=== PATIENT | female | born 1935 ===

== ENCOUNTER 2018-06-17 11:10 | Emergency (ER) | payer MEDICARE ==
[2018-06-17] MEDS ORDERED: SODIUM CHLORIDE 0.9% 1,000 ML IV ONE (11:18)
--- NOTE | 2018-06-17 11:26 | ED ---
Altered Mental Status HPI - General Stated Complaint: altered Time Seen by Provider: 06/17/18 11:10 Source: EMS, RN notes reviewed, old records reviewed Mode of arrival: EMS - History of Present Illness Initial Comments: This 82-year-old female history of hypertension but no prior history of stroke who apparently was last known to be well yesterday who was brought in by EMS today because of altered mental status and confusion she did have apparently nausea and episode of vomiting with vomitus on the front of her clothing. She was confused as to where she was and Perseverating that she was not sure she was in [place] or [place]. Is no reports of trauma no fevers chills or sweats cough or phlegm production no known history of drug or alcohol abuse no other information available at this time. Additionally the patient reportedly had problems with potassium levels in the past. MD Complaint: altered mental status, confusion - Related Data Home Medications Medication Instructions Recorded Confirmed Furosemide [Lasix] 20 mg PO DAILY 06/17/18 06/17/18 Lisinopril [Zestril] 5 mg PO DAILY 06/17/18 06/17/18 Meclizine HCl 25 mg PO DAILY PRN 06/17/18 06/17/18 Meloxicam 7.5 mg PO DAILY 06/17/18 06/17/18 Simvastatin [Zocor] 20 mg PO HS 06/17/18 06/17/18 Allergies Allergy/AdvReac Type Severity Reaction Status Date / Time No Known Allergies Allergy Verified 06/17/18 11:47 Review of Systems ROS Statement: Those systems with pertinent positive or pertinent negative responses have been documented in the HPI. ROS Other: All systems not noted in ROS Statement are negative. Limitations: ROS unobtainable due to patients medical condition General Exam - General Exam Comments Initial Comments: This is a well-developed well-nourished awake alert but confused female who is perseverating on questioning. She is also noted to have some pursed mouth breathing Limitations: altered mental status General appearance: alert, in no apparent distress Head exam: Present: atraumatic, normocephalic, normal inspection Eye exam: Present: normal appearance, PERRL, EOMI. Absent: scleral icterus, conjunctival injection, periorbital swelling ENT exam: Present: mucous membranes dry Neck exam: Present: normal inspection. Absent: tenderness, meningismus, lymphadenopathy Respiratory exam: Present: normal lung sounds bilaterally. Absent: respiratory distress, wheezes, rales, rhonchi, stridor Cardiovascular Exam: Present: regular rate, normal rhythm, normal heart sounds. Absent: systolic murmur, diastolic murmur, rubs, gallop, clicks GI/Abdominal exam: Present: soft, normal bowel sounds. Absent: distended, ten derness, guarding, rebound, rigid Extremities exam: Present: normal inspection, full ROM, normal capillary refill. Absent: tenderness, pedal edema, joint swelling, calf tenderness Back exam: Present: normal inspection Neurological exam: Present: alert, altered, CN II-XII intact. Absent: motor sensory deficit Psychiatric exam: Present: flat affect Skin exam: Present: warm, dry, intact, normal color. Absent: rash Course Vital Signs 06/17/18 06/17/18 06/17/18 11:28 13:28 14:32 Temperature 98.1 F Pulse Rate 97 101 H 122 H Respiratory 18 18 18 Rate Blood Pressure 139/104 108/74 129/81 O2 Sat by Pulse 100 100 95 Oximetry - Reevaluation(s) Reevaluation #1: 06/17/18 14:49 I did reevaluate patient several occasions her mentation has improved markedly however she still has difficulty with remembering approximately last week for life. Her daughter is present and does confirm this. Reevaluation #2: 06/17/18 14:50 Patient on reevaluation noted to be in atrial fibrillation this is a new condition for her. This is not present on her initial evaluation today. Reevaluation #3: 06/17/18 14:51 Cardiac monitoring: Needed to rule out dysrhythmia. Patient did present with altered mental status. Initially the heart rate was 55 with a sinus rhythm pattern later on however on reevaluation the patient demonstrated evidence of atrial fibrillation with a rapid response rate of about 105. No PVCs present Reevaluation #4: 06/17/18 14:52 Repeat EKG shows a atrial fibrillation rate of 102 QRS 132 QT since QTC 384/500 right bundle-branch block pattern no acute ST-T wave elevation or depression seen. Medical Decision Making - Medical Decision Making The patient did initially present with altered mental status and confusion that has improved except for memory deficit for the past week. She also had a new onset A. fib which was noted on reevaluation the emergency department she did not present this way initially. Computed tomography scan was negative for acute findings I did discuss case with Dr. Love initially patient will be transferred to [facility] at the request of the family due to no neurology coverage in this facility. Dr. Hartley is receiving the patient in the emergency department. The patient's heart rate is in the low 100s at this time this time Cardizem will be withheld. - Lab Data Result diagrams: 06/17/18 11:20 06/17/18 11:20 Lab Results 06/17/18 06/17/18 06/17/18 Range/Units 11:20 11:20 11:20 WBC 13.2 H (3.8-10.6) k/uL RBC 4.71 (3.80-5.40) m/uL Hgb 14.7 (11.4-16.0) gm/dL Hct 43.4 (34.0-46.0) % MCV 92.1 (80.0-100.0) fL MCH 31.3 (25.0-35.0) pg MCHC 34.0 (31.0-37.0) g/dL RDW 14.0 (11.5-15.5) % Plt Count 289 (150-450) k/uL Neutrophils % 75 % Lymphocytes % 18 % Monocytes % 4 % Eosinophils % 2 % Basophils % 1 % Neutrophils # 9.9 H (1.3-7.7) k/uL Lymphocytes # 2.4 (1.0-4.8) k/uL Monocytes # 0.5 (0-1.0) k/uL Eosinophils # 0.2 (0-0.7) k/uL Basophils # 0.1 (0-0.2) k/uL PT (9.0-12.0) sec INR (<1.2) APTT (22.0-30.0) sec Sodium 138 (137-145) mmol/L Potassium 3.7 (3.5-5.1) mmol/L Chloride 103 (98-107) mmol/L Carbon Dioxide 24 (22-30) mmol/L Anion Gap 11 mmol/L BUN 14 (7-17) mg/dL Creatinine 0.62 (0.52-1.04) mg/dL Est GFR (CKD-EPI)AfAm >90 (>60 ml/min/1.73 sqM) Est GFR (CKD-EPI)NonAf 84 (>60 ml/min/1.73 sqM) Glucose 119 H (74-99) mg/dL Calcium 10.2 (8.4-10.2) mg/dL Magnesium 1.9 (1.6-2.3) mg/dL Total Bilirubin 1.0 (0.2-1.3) mg/dL AST 28 (14-36) U/L ALT 31 (9-52) U/L Alkaline Phosphatase 107 (38-126) U/L Ammonia <9 (<30) umol/L Creatine Kinase 52 (30-135) U/L Troponin I (0.000-0.034) ng/mL Total Protein 8.4 H (6.3-8.2) g/dL Albumin 4.8 (3.5-5.0) g/dL Urine Color Urine Appearance (Clear) Urine pH (5.0-8.0) Ur Specific [place] (1.001-1.035) Urine Protein (Negative) Urine Glucose (UA) (Negative) Urine Ketones (Negative) Urine Blood (Negative) Urine Nitrite (Negative) Urine Bilirubin (Negative) Urine Urobilinogen (<2.0) mg/dL Ur Leukocyte Esterase (Negative) Urine Opiates Screen (NotDetected) Ur Oxycodone Screen (NotDetected) Urine Methadone Screen (NotDetected) Ur Propoxyphene Screen (NotDetected) Ur Barbiturates Screen (NotDetected) U Tricyclic Antidepress (NotDetected) Ur Phencyclidine Scrn (NotDetected) Ur Amphetamines Screen (NotDetected) U Methamphetamines Scrn (NotDetected) U Benzodiazepines Scrn (NotDetected) Urine Cocaine Screen (NotDetected) U Marijuana (THC) Screen (NotDetected) Serum Alcohol <10 mg/dL 06/17/18 06/17/18 06/17/18 Range/Units 11:20 11:20 12:20 WBC (3.8-10.6) k/uL RBC (3.80-5.40) m/uL Hgb (11.4-16.0) gm/dL Hct (34.0-46.0) % MCV (80.0-100.0) fL MCH (25.0-35.0) pg MCHC (31.0-37.0) g/dL RDW (11.5-15.5) % Plt Count (150-450) k/uL Neutrophils % % Lymphocytes % % Monocytes % % Eosinophils % % Basophils % % Neutrophils # (1.3-7.7) k/uL Lymphocytes # (1.0-4.8) k/uL Monocytes # (0-1.0) k/uL Eosinophils # (0-0.7) k/uL Basophils # (0-0.2) k/uL PT 10.2 (9.0-12.0) sec INR 0.9 (<1.2) APTT 26.0 (22.0-30.0) sec Sodium (137-145) mmol/L Potassium (3.5-5.1) mmol/L Chloride (98-107) mmol/L Carbon Dioxide (22-30) mmol/L Anion Gap mmol/L BUN (7-17) mg/dL Creatinine (0.52-1.04) mg/dL Est GFR (CKD-EPI)AfAm (>60 ml/min/1.73 sqM) Est GFR (CKD-EPI)NonAf (>60 ml/min/1.73 sqM) Glucose (74-99) mg/dL Calcium (8.4-10.2) mg/dL Magnesium (1.6-2.3) mg/dL Total Bilirubin (0.2-1.3) mg/dL AST (14-36) U/L ALT (9-52) U/L Alkaline Phosphatase (38-126) U/L Ammonia (<30) umol/L Creatine Kinase (30-135) U/L Troponin I 0.057 H* (0.000-0.034) ng/mL Total Protein (6.3-8.2) g/dL Albumin (3.5-5.0) g/dL Urine Color Light Yellow Urine Appearance Clear (Clear) Urine pH 8.0 (5.0-8.0) Ur Specific [place] 1.008 (1.001-1.035) Urine Protein Trace H (Negative) Urine Glucose (UA) Negative (Negative) Urine Ketones 1+ H (Negative) Urine Blood Negative (Negative) Urine Nitrite Negative (Negative) Urine Bilirubin Negative (Negative) Urine Urobilinogen <2.0 (<2.0) mg/dL Ur Leukocyte Esterase Negative (Negative) Urine Opiates Screen Not Detected (NotDetected) Ur Oxycodone Screen Not Detected (NotDetected) Urine Methadone Screen Not Detected (NotDetected) Ur Propoxyphene Screen Not Detected (NotDetected) Ur Barbiturates Screen Not Detected (NotDetected) U Tricyclic Antidepress Not Detected (NotDetected) Ur Phencyclidine Scrn Not Detected (NotDetected) Ur Amphetamines Screen Not Detected (NotDetected) U Methamphetamines Scrn Not Detected (NotDetected) U Benzodiazepines Scrn Not Detected (NotDetected) Urine Cocaine Screen Not Detected (NotDetected) U Marijuana (THC) Screen Not Detected (NotDetected) Serum Alcohol mg/dL - EKG Data -: EKG Interpreted by Me ( no acute findings) EKG shows normal: sinus rhythm (Initial EKG upon arrival showed a sinus bradycardia 51 FL interval 164 QRS duration 136 QT since QTC 516/475 right bundle-branch block artifact is present) - Radiology Data Radiology results: report reviewed (I did review the imaging and report), image reviewed Critical Care Time Critical Care Time: Yes Critical Care Time: 47 minutes of critical care time which includes his presentation with history p hysical labs x-rays also multiple reevaluation the patient. Discussed with patient's daughter regarding findings discussed with the patient session with the hospitalist on 2 occasions discussion with the receiving physician at [facility]. Documentation of the above. Disposition Clinical Impression: Delirium due to general medical condition, Altered mental status, Atrial fibrillation with rapid ventricular response, Elevated troponin Disposition: OTHER INSTITUTION NOT DEFINED Condition: Fair Is patient prescribed a controlled substance at d/c from ED?: No Referrals: Ladonna Mcghee MD [Primary Care Provider] - 1-2 days - Out of Hospital Transfer - Req. Specs Out of Hospital Transfer - Requested Specifics: Other Emergency Center
[2018-06-17 11:37] VITALS: RESP 18; TEMP 98.1
[2018-06-17] MEDS ORDERED: METOCLOPRAMIDE 5 MG/ML 2 ML VIAL IVP STA ×2 (11:44→15:22)
[2018-06-17 11:50] LABS: Basophils # (A) 0.1 k/uL (0-0.2); Basophils % (A) 1 %; Eosinophils # (A) 0.2 k/uL (0-0.7); Eosinophils % (A) 2 %; HCT 43.4 % (34.0-46.0); HGB 14.7 gm/dL (11.4-16.0); Lymphocytes # (A) 2.4 k/uL (1.0-4.8); Lymphocytes % (A) 18 %; MCH 31.3 pg (25.0-35.0); MCV 92.1 fL (80.0-100.0); Mean Platelet Volume 7.3; Monocytes # (A) 0.5 k/uL (0-1.0); Monocytes % (A) 4 %; Neutrophils # (A) 9.9 k/uL (1.3-7.7); Neutrophils % (A) 75 %; Platelet Count 289 k/uL (150-450); RBC 4.71 m/uL (3.80-5.40); WBC 13.2 k/uL (3.8-10.6)
[2018-06-17 11:57] LABS: INR 0.9 (<1.2); Prothrombin Time 10.2 sec (9.0-12.0)
[2018-06-17 12:01] LABS: ALT 31 U/L (9-52); AST 28 U/L (14-36); Albumin 4.8 g/dL (3.5-5.0); Alcohol <10 mg/dL; Alkaline Phosphatase 107 U/L (38-126); Anion Gap 11 mmol/L; Blood Urea Nitrogen 14 mg/dL (7-17); Calcium 10.2 mg/dL (8.4-10.2); Carbon Dioxide 24 mmol/L (22-30); Chloride 103 mmol/L (98-107); Creatine Kinase 52 U/L (30-135); Glucose 119 mg/dL (74-99); Magnesium 1.9 mg/dL (1.6-2.3); Potassium 3.7 mmol/L (3.5-5.1); Sodium 138 mmol/L (137-145); Total Protein 8.4 g/dL (6.3-8.2)
--- NOTE | 2018-06-17 12:16 | XR ---
EXAMINATION TYPE: XR chest 2V DATE OF EXAM: 06/17/2018 COMPARISON: NONE HISTORY: Altered mental status TECHNIQUE: Frontal and lateral views of the chest are obtained. FINDINGS: Prominent lung volumes with relative flattening the hemidiaphragms is noted. There is hyper inflation. There are overlying cardiac leads. There is no focal air space opacity, pleural effusion, or pneumothorax seen. The cardiac silhouette size is within normal limits. Thoracic spondylosis is present. The osseous structures are intact. IMPRESSION: No acute cardiopulmonary process.
--- NOTE | 2018-06-17 12:17 | CT ---
EXAMINATION TYPE: CT brain wo con DATE OF EXAM: 06/17/2018 COMPARISON: None HISTORY: 82-year-old female with confusion, altered mental status changes TECHNIQUE: Examination was done in axial plane without intravenous contrast. Coronal and sagittal r econstructions performed. CT DLP: 1068.4 mGycm Automated exposure control for dose reduction was used. FINDINGS: There is no evidence of acute intracranial hemorrhage, acute ischemic changes, mass, mass-effect, or extra-axial fluid collection. There is no effacement of cerebral sulci or basal subarachnoid cister ns. There is no hydrocephalus. There is no midline shift. Mack-white matter distinction is preserv ed. Moderate patchy white matter hypodensities in both cerebral hemispheres. Paranasal sinuses and mastoid air cells well pneumatized. Orbits and globes are intact. IMPRESSION: Moderate patchy white matter hypodensities likely relating to changes of chronic small vessel ischemi c disease. No acute intracranial abnormality seen.
[2018-06-17 12:44] LABS: Appearance,Urine Clear (Clear); Bilirubin,Urine Negative (Negative); Blood,Urine Negative (Negative); Color,Urine Light Yellow; Glucose,Urine (UA) Negative (Negative); Ketones,Urine 1+ (Negative); Leukocyte Esterase,Urine Negative (Negative); Nitrite,Urine Negative (Negative); Protein,Urine Trace (Negative); Specific Gravity,Urine 1.008 (1.001-1.035); Urobilinogen,Urine <2.0 mg/dL (<2.0)
[2018-06-17 12:54] LABS: Amphetamine Screen,Urine Not Detected (NotDetected); Barbiturate Screen,Urine Not Detected (NotDetected); Benzodiazepines Screen,Urine Not Detected (NotDetected); Cocaine Screen,Urine Not Detected (NotDetected); Methadone Screen, Urine Not Detected (NotDetected); Opiate Screen,Urine Not Detected (NotDetected); Oxycodone Screen, Urine Not Detected (NotDetected); Phencyclidine Screen,Urine Not Detected (NotDetected); Tricyclic Antidepressant,Urine Not Detected (NotDetected); Urn Cannabinoid Scrn Not Detected (NotDetected)
[2018-06-17] MEDS ORDERED: ASPIRIN 81 MG PO STA (14:04)
[2018-06-17] MEDS ORDERED: HEPARIN SODIUM,PORCINE 5,000 UNIT/ML 1 ML VIAL IV PRN (14:04)
[2018-06-17] MEDS ORDERED: HEPARIN SODIUM,PORCINE 5,000 UNIT/ML 1 ML VIAL IV ONE (14:04)
[2018-06-17] MEDS ORDERED: HEPARIN SOD,PORK IN 0.45% NACL 25,000 UNIT in 0.45% NACL 1 250ML.BAG IV SCH (14:15)
[2018-06-17 15:10] VITALS: BP 134/71; PULSE 72
== END 2018-06-17 15:31 | disposition other institution (70) ==
LOC: EC 11:10
DX: R41.82 Altered mental status, unspecified (principal); F05 Delirium due to known physiological condition; I48.91 Unspecified atrial fibrillation; R79.89 Other specified abnormal findings of blood chemistry; R11.2 Nausea with vomiting, unspecified; I10 Essential (primary) hypertension; Z79.1 Long term (current) use of non-steroidal anti-inflammatories (NSAID); Z79.899 Other long term (current) drug therapy
CPT/HCPCS: 36415; 93005; 80053; 82140; 82550; 83735; 84484; 85025; 85610; 85730; 81003; 80306; 71046; 70450; 99291; 96365; 96375; 96376 ×2; 96361 ×3; G0480; J1644 ×2; J2765; 80320

== ENCOUNTER → 2018-09-13 | Outpatient (CLI) | payer MEDICARE ==
[2018-09-13 09:52] LABS: HCT 39.1 % (34.0-46.0); HGB 12.7 gm/dL (11.4-16.0); MCH 31.1 pg (25.0-35.0); MCHC 32.3 g/dL (31.0-37.0); MCV 96.3 fL (80.0-100.0); Mean Platelet Volume 6.4; Platelet Count 262 k/uL (150-450); RBC 4.06 m/uL (3.80-5.40); RDW 12.7 % (11.5-15.5); WBC 5.3 k/uL (3.8-10.6)
[2018-09-13 16:16] LABS: African American GFR (CKD) 92.9 (60.0-200.0); Anion Gap 9.3 mmol/L (4.00-12.00); Carbon Dioxide 26.7 mmol/L (21.6-31.8); Potassium 4.3 mmol/L (3.5-5.5)
== END | disposition home or self-care (01) ==
LOC: LABWHC1 08:27
PROVIDERS: ATTEND Internal Medicine Interventional Cardiology
DX: Z01.812 Encounter for preprocedural laboratory examination (principal); R94.39 Abnormal result of other cardiovascular function study
CPT/HCPCS: 36415; 80051; 82565; 84520; 85027

== ENCOUNTER → 2018-09-15 | Day surgery (SDC) | payer MEDICARE ==
[2018-09-10 10:09] VITALS: BMI 28.3
[~2018-09-15] MED LIST: ALPRAZolam 0.25 MG TAB PO PRN; ASPIRIN 325 MG TAB PO STA; HEPARIN SODIUM 1,000 UN/ML (10ML VL) ONE; IOPAMIDOL-370 125ML BTL INJ ONE; LIDOCAINE 1% INJ 10MG/ML (20 ML MDV) ONE; NITROGLYCERIN SL TABS 0.4 MG TAB SUBLINGUAL PRN; RX INFO: IV CONTRAST WAS GIVEN 1 EACH MISC MISCELLANE PRN; SODIUM CHLORIDE 0.9% 1,000 ML IV SCH; SODIUM CHLORIDE 0.9% 1,000 ML in EMPTY BAG 1 BAG IV ONE; VERAPAMIL 2.5 MG/ML 2 ML AMP ONE
[2018-09-15 08:03] VITALS: RESP 18; TEMP 97.8
[2018-09-15] MEDS: MIDAZOLAM (PF) 2 MG/2 ML VIAL IV ONE ×2 (08:34→08:49)
[2018-09-15] MEDS: VERAPAMIL SYRINGE (5 MG/10 ML) INTRAARTER ONE ×2 (08:48→08:55)
--- NOTE | 2018-09-15 09:23 | CC ---
CARDIAC CATHETERIZATION REPORT DATE OF SERVICE: 09/15/2018 PERFORMING PHYSICIAN: Johann Bolden MD. PROCEDURE PERFORMED: 1. Selective right and left coronary angiogram. 2. Left heart catheterization. INDICATION: This is a pleasant 82-year-old female patient who is in good physical and mental shape with hypertension, dyslipidemia, and paroxysmal atrial fibrillation, who underwent myocardial perfusion imaging stress test and that revealed inferior ischemia. Because of that, heart catheterization was advised. APPROACH: Right radial artery. COMPLICATION: None. LEVEL OF SEDATION: Moderate sedation length of 13 minutes. PROCEDURE DESCRIPTION: After obtaining an informed consent, the patient was brought to the cardiac open hearth laborer. The right radial artery was cannulated using micropuncture technique. The micropuncture wire passed easily, then I placed a 6-Malagasy sheath in the right radial artery. After that, I did give the patient 2 mg of verapamil IA and 7,000 units of heparin IV. Selective right and left coronary angiogram was performed using JR4 and JL3.5 and left heart catheterization was performed using the JR4, which crossed the aortic valve. Then I did pullback across the aortic valve after flushing the catheter. The procedure was completed without any complication. SELECTIVE CORONARY ANGIOGRAM: 1. The right coronary artery is a large caliber vessel. It is a dominant vessel. The RCA is aneurysmal in the proximal portion, but there is no occlusive disease in the proximal, mid and distal portion. 2. The left main is angiographically normal. It bifurcates into left circumflex and left anterior descending artery. 3. The left circumflex is a large caliber vessel. It is a nondominant vessel. The proximal circumflex appeared to be angiographically normal. The mid and distal circumflex seems to be angiographically normal. 4. The LAD: The proximal LAD appeared to be mildly aneurysmal without occlusive disease. The mid LAD and distal LAD appeared to be angiographically normal. The LAD gives rise into a medium-sized diagonal branch which has mild disease in the midportion. HEMODYNAMICS: The left ventricular end-diastolic pressure was 18 mmHg without significant gradient across the aortic valve. CONCLUSION: 1. Mild nonobstructive coronary artery disease.. 2. Elevated left ventricular end-diastolic pressure. POSTPROCEDURE MANAGEMENT: 1. Maximize medical treatment. 2. Follow up with the patient. MMODL / IJN: [id number] /
--- NOTE | 2018-09-15 09:29 | LTR ---
September 15, 2018 Re: Yadira Holt Dear Ladonna: Ms. Yadira Holt underwent a heart catheterization and that revealed mild nonobstructive coronary artery disease. I did recommend maximize medical treatment, aggressive cholesterol control, and continue anticoagulation for the atrial fibrillation. I want to thank you for allowing me to participate in her care and please do not hesitate to call if you have any questions or concerns. Sincerely, MD JESUS Tinajero / ADA: [id number] /
[2018-09-15 13:01] VITALS: BP 116/58; PULSE 63
== END ==
LOC: CATHCVL 07:21
PROVIDERS: ATTEND Internal Medicine Interventional Cardiology
DX: I25.10 Atherosclerotic heart disease of native coronary artery without angina pectoris (principal); I10 Essential (primary) hypertension; I25.41 Coronary artery aneurysm; I48.0 Paroxysmal atrial fibrillation; I49.5 Sick sinus syndrome; R00.2 Palpitations; I34.0 Nonrheumatic mitral (valve) insufficiency; E78.5 Hyperlipidemia, unspecified; Z79.01 Long term (current) use of anticoagulants; Z79.899 Other long term (current) drug therapy
CPT/HCPCS: 93458; C1769; C1894; J1644; Q9967; J2250

== ENCOUNTER → 2018-09-22 | Outpatient (CLI) | payer MEDICARE ==
--- NOTE | 2018-09-22 12:33 | XR ---
EXAMINATION TYPE: XR lumbosacral spine min 4V DATE OF EXAM: 09/22/2018 CLINICAL HISTORY: Sciatica and low back pain TECHNIQUE: Frontal, lateral, and oblique images of the lumbar spine are obtained. COMPARISON: None FINDINGS: There is diffuse osseous demineralization seen. There is grade 1 anterolisthesis of L4 on L 5. Lumbar spine vertebral bodies maintain normal vertebral body height and alignment. T12 vertebral b tatum height is incompletely assessed. Multilevel intervertebral disc space narrowing, facet arthropath y and small interosseous heights are seen as well as multilevel endplate sclerosis. Mild atherosclero sis of the abdominal aorta. Very minimal S-shaped curvature of the spine may be positional. Dystrophi c calcification overlying the lower aspect of the right sacroiliac joint could relate to a degenerati ve uterine leiomyoma. There is neural foraminal narrowing on the right at L2-L3, L3-L4 and L4-L5 and on the left at L3-L4 and L4-L5. IMPRESSION: 1. No acute fracture of the lumbar spine. 2. Diffuse osseous demineralization. 3. Moderate multilevel degenerative disc disease of malalignment (grade 1 anterolisthesis of L4 and L 5). This is likely on a degenerative basis.
== END | disposition home or self-care (01) ==
LOC: RADXRMAIN 11:29
PROVIDERS: ATTEND Internal Medicine
DX: M51.16 Intervertebral disc disorders with radiculopathy, lumbar region (principal); M43.16 Spondylolisthesis, lumbar region
CPT/HCPCS: 72110

== ENCOUNTER → 2020-09-12 | Outpatient (CLI) | payer MEDICARE ==
--- NOTE | 2020-09-13 10:59 | BD ---
EXAMINATION TYPE: Axial Bone Density DATE OF EXAM: 09/12/2020 COMPARISON: NONE CLINICAL HISTORY: Postmenopausal Height: 63 Weight: 181.8 FRAX RISK QUESTIONS: Alcohol (3 or more units per day): no Family History (Parent hip fracture): no Glucocorticoids (More than 3mos): no (Ex: prednisone, prednisolone, methylprednisolone, dexamethasone, and hydrocortisone). History of Fracture in Adulthood: no Secondary Osteoporosis: 1. Type 1 Diabetes: no 2. Hyperthyroidism: no 3. Menopause before 45: no 4. Malnutrition: no 5. Chronic liver disease: no Rheumatoid Arthritis: no Current Tobacco Use: no RISK FACTORS HISTORY OF: Surgery to Spine/Hip(right/left)/Wrist (right/left): no Family History of Osteoporosis: yes Active: sometimes Diet low in dairy products/other sources of calcium: no Postmenopausal woman: age 44 Lost more than 2 inches in height since high school: no MEDICATIONS: eliquis, metoprolol, lisinopril, furosemide, simvastatin, meclizine Additional History: EXAM MEASUREMENTS: Bone mineral densitometry was performed using the [employer] System. Bone mineral density as measured about the Lumbar spine is: ----- L1-L4(G/cm2): 1.029 T Score Values are as follows: ----- L2: -1.7 ----- L3: -0.7 ----- L4: -0.8 ----- L1-L4: -1.3 Bone mineral density : baseline Bone mineral density about the R hip (g/cm2): 0.739 Bone mineral density about the L hip (g/cm2): 0.789 T Score values are as follows: -----R Neck: -2.1 -----L Neck: -1.8 -----R Total: -1.5 -----L Total: -0.7 Bone mineral density : baseline IMPRESSION: Osteopenia (T Score between -2.5 and -1). There is slightly increased risk of fracture and the patient may be considered for treatment. Re-Screen 2-5 years. NOTE: T-SCORE=SD OF THE YOUNG ADULT MEAN.
== END | disposition home or self-care (01) ==
LOC: RADBDWWP 14:55
PROVIDERS: ATTEND Internal Medicine
DX: M85.80 Other specified disorders of bone density and structure, unspecified site (principal)
CPT/HCPCS: 77080

== ENCOUNTER → 2022-09-10 | Outpatient (CLI) | payer MEDICARE ==
--- NOTE | 2022-09-10 11:50 | XR ---
EXAMINATION TYPE: XR knee complete LT DATE OF EXAM: 09/10/2022 10:30 AM INDICATION: Patient age:Female; 86 years old; Reason for study: [id number] OA LT KNEE; COMPARISON: None. TECHNIQUE: The Left knee(s) was examined in Frontal, lateral and oblique projections. FINDINGS: No evidence of any acute osseous pathology, soft tissue swelling, or joint effusion is no mary. Tricompartmental osteophyte formation involving the femoral condyles, tibial plateau and patella. Mo derate to severe joint space narrowing. Atherosclerosis of the arterial vasculature. IMPRESSION: 1. No acute osseous pathology. 2. 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
== END | disposition home or self-care (01) ==
LOC: RADXRYALE 09:45
PROVIDERS: ATTEND Internal Medicine
DX: M17.12 Unilateral primary osteoarthritis, left knee (principal)